=== PATIENT | female | born 1980 | race Caucasian/White ===

== ENCOUNTER 2018-03-04 14:15 | Emergency (ER) | payer MEDICAID ==
[2018-03-04 14:26] VITALS: BP 125/86
== END 2018-03-04 15:22 | disposition home or self-care (01) ==
LOC: ED 15:16
DX: S63.521A Sprain of radiocarpal joint of right wrist, initial encounter (principal); X58.XXXA Exposure to other specified factors, initial encounter; Y93.89 Activity, other specified; Y92.009 Unspecified place in unspecified non-institutional (private) residence as the place of occurrence of the external cause; Y99.8 Other external cause status
CPT/HCPCS: 29260; 99284